=== PATIENT | female | born 1950 | race Caucasian/White ===

== ENCOUNTER → 2016-10-22 | Outpatient (CLI) | payer OTHER, MEDICARE ==
--- NOTE | 2016-10-22 15:15 | US ---
Sonography of the Abdominal Aorta Clinical History: 66-year-old female with a family history of an abdominal aortic aneurysm. ICD-10 Diagnostic Codes: Z00.00, E03.9, K21.9, and E78.5. Technique: A curvilinear 5-MHz transducer was used to sonographically evaluate the course of the abd ominal aorta and the proximal common iliac arteries. Color and spectral Doppler of the aorta is also obtained. Comparison Study: None. Findings: The proximal abdominal aorta measures 2.1 x 2.2 cm; the midabdominal aorta measures 1.7 x 1.8 cm; the distal abdominal aorta measures 1.8 x 2.4 cm. The right common iliac artery measures 1.1 x 1.4 cm, and the left common iliac artery measures 1.4 x 1.4 cm. The peak systolic velocity in the abdominal aorta is 94 cm/s, with a peak diastolic velocity of 15 cm/s. Impression: There is no sonographic evidence of an abdominal aortic aneurysm.
== END ==
LOC: CIMAGING 08:48
PROVIDERS: ATTEND Family Medicine
DX: Z13.89 Encounter for screening for other disorder (principal)

== ENCOUNTER → 2016-12-10 | Outpatient (CLI) | payer OTHER, MEDICARE | LOC: CIMAGING 10:11 | DX: Z12.31 Encounter for screening mammogram for malignant neoplasm of breast (principal) | CPT/HCPCS: G0202 ==

== ENCOUNTER → 2017-12-20 | Outpatient (CLI) | payer OTHER, MEDICARE | LOC: CIMAGING 09:41 | PROVIDERS: ATTEND Family Medicine | DX: Z12.31 Encounter for screening mammogram for malignant neoplasm of breast (principal) ==

== ENCOUNTER → 2018-12-22 | Outpatient (CLI) | payer OTHER, MEDICARE | LOC: EMCIMAGING 11:49 | PROVIDERS: ATTEND Family Medicine | DX: Z12.31 Encounter for screening mammogram for malignant neoplasm of breast (principal) | CPT/HCPCS: 77067-PN ==